=== PATIENT | male | born 1930 | race Caucasian/White ===

== ENCOUNTER 2018-08-29 14:34 | Emergency (ER) | payer MEDICARE, OTHER ==
[~2018-08-29] VITALS: Ht 160 cm; Wt 56.3 kg
[~2018-08-29 14:34] MED LIST: ASPI81TA59 PO; ATOR10TA9 PO; AZIT500T5 PO; CARV-39 PO; CLOP75TA PO; CYAN100T PO; DOCU-131 PO; FURO20TA3 PO; ISOS20TA3 PO; ISOS30TA8 PO; LISI-170 PO; LISI2.5T PO; METF500T17 PO; NITR0.4T SL; POTA10TA11 PO; SENN25TA PO; SUCR1ORA11 PO
--- NOTE | 2018-08-29 15:39 | NUR ---
TO ROOM FROM LOBBY. NAD.
[2018-08-29 15:57] LABS: BASOPHILS # (AUTO) 0.04 x10^3/uL (0-0.1); BASOPHILS % (AUTO) 0 % (0-1); EOSINOPHILS % (AUTO) 2 % (1-7); LYMPHOCYTES # (AUTO) 1.45 x10^3/uL (1-3.4); LYMPHOCYTES % (AUTO) 15 % (22-44); MD NO; MEAN CORPUSCULAR HGB CONC 33.9 g/dL (33.2-36.2); MEAN CORPUSCULAR VOLUME 97.4 fL (81-97); MEAN PLATELET VOLUME 8.2 fL (7.4-10.4); MONOCYTES # (AUTO) 0.66 x10^3/uL (0.2-0.8); MONOCYTES % (AUTO) 7 % (2-9); NEUTROPHILS # (AUTO) 7.15 x10^3/uL (1.8-6.8); NEUTROPHILS % (AUTO) 75 % (42-75); PLATELET COUNT 282 x10^3/uL (130-400); RED BLOOD COUNT 3.79 x10^6/uL (4.38-5.82); RED CELL DISTRIBUTION WIDTH 14.2 % (9.4-14.8)
--- NOTE | 2018-08-29 15:57 | NUR ---
pt to ed for productive blood-tinged cough starting last night. currently on blood thinner. pt seen last night for same. has not yet started abx. pt calm. no cough noted at this time. connected to pulse ox and bp cuff. vss. call light within reach. will continue to monitor. awaiting results at this time.
[2018-08-29 16:01] LABS: ALBUMIN 3.3 g/dL (3.4-5.0); ANION GAP 8 mmol/L (5-15); CHLORIDE 106 mmol/L (98-107)
[2018-08-29 16:07] VITALS: BP 144/51
[2018-08-29] MEDS ORDERED: AZITHROMYCIN 500 MG TABLET PO ONE (16:30)
[2018-08-29] MEDS ORDERED: CEFDINIR 300 MG CAPSULE PO ONE (16:30)
[2018-08-29] MEDS ORDERED: ALBUTEROL SULFATE 2.5 MG/3 ML NPPB ONE (16:30)
[2018-08-29] MEDS ORDERED: ALBUTEROL SULFATE 2.5 MG/3 ML ONE (16:33)
[2018-08-29] MEDS ORDERED: CEFDINIR 300 MG CAPSULE ONE (16:37)
[2018-08-29] MEDS ORDERED: AZITHROMYCIN 250 MG TABLET ONE (16:37)
--- NOTE | 2018-08-29 17:02 | NUR ---
Pt amb to/from restroom unassisted, steady gait, no dyspnea prior to d/c. Patient/Caregiver given discharge instructions and they have confirmed that they understand the instructions. Patient ambulatory with steady gait.
== END 2018-08-29 17:04 | disposition home or self-care (01) ==
LOC: ED 15:45
DX: J15.9 Unspecified bacterial pneumonia (principal); J40 Bronchitis, not specified as acute or chronic; R04.2 Hemoptysis; Z95.0 Presence of cardiac pacemaker; E11.9 Type 2 diabetes mellitus without complications; I10 Essential (primary) hypertension; I25.2 Old myocardial infarction; E78.00 Pure hypercholesterolemia, unspecified; I25.10 Atherosclerotic heart disease of native coronary artery without angina pectoris
CPT/HCPCS: 36415; 71046; 80048; 82040; 83605; 84145; 85025; 87040; 94640; 99284; J7512; J7613